=== PATIENT | female | born 1940 | race Caucasian/White ===

== ENCOUNTER → 2019-02-01 10:57 | Outpatient (CLI) | payer MEDICARE, OTHER ==
[2013-01-12 15:35] VITALS: BMI 34.4
[~2019-02-01 10:57] MED LIST: ASPIRIN325 MG PO; CO Q-1030 MG; CRESTOR5 MG PO; DESYREL50 MG PO; DIOVAN160 MG PO; HYDROCHLOROTHIA50 MG PO; LOVAZA1 G; PLAVIX75 MG PO; TENORMIN50 MG PO; TIROSINT25 MCG PO; VITAMIN D31000 UNIT
--- NOTE | 2019-02-07 09:53 | ST ---
PATIENT:JUSTIN LI MEDICAL RECORD: [id number] SEX: F LOCATION:[facility] ORDER #: ADMISSION DATE: 02/01/19 AGE OF PATIENT: 78 REFERRING PHYSICIAN: INTERPRETING PHYSICIAN: RAMESH GREGORIO MD DATE OF SERVICE: 02/01/2019 PROCEDURE: Nuclear stress test. INDICATION: Angina, syncope, bradycardia, hypertension, and hyperlipidemia. She was exercised on standard Lexiscan protocol with 33 mCi of sestamibi injected at peak stress, 11 mCi were used previously for rest images. FINDINGS: Gated SPECT reveals preserved ejection fraction at 83% with good wall motion and thickening and brightening throughout all segments. SPECT imaging Cardiolite was used as myocardial fusion agent. There is homogeneous uptake throughout all segments at rest and stress with no evidence of inducible ischemia or previous infarction. OVERALL IMPRESSION: 1. This is a normal nuclear stress test with no evidence of inducible ischemia or previous infarction. 2. Gated SPECT reveals a preserved ejection fraction at 83%. In this patient with ongoing symptomatology, the current scan does not suggest the presence of hemodynamically significant coronary artery disease. Evaluate noncardiac etiology of chest pain. TRANSINT:[id number] Voice Confirmation ID: [id number] DOCUMENT ID: [id number] RAMESH GREGORIO MD at 0953 CC: SHAHBAZ HOWARD MD [id number] DICTATION DATE: 02/03/19 1324 HAND SOLE SEWER: 02/04/19 0045 DEP CLI 02/01/[address] [id number]
== END | disposition home or self-care (01) ==
LOC: D.HCCARDIO 10:57
PROVIDERS: ATTEND Internal Medicine Interventional Cardiology
DX: I20.9 Angina pectoris, unspecified (principal); R55 Syncope and collapse; I10 Essential (primary) hypertension; E78.5 Hyperlipidemia, unspecified